=== PATIENT | female | born 1985 | race Caucasian/White ===

== ENCOUNTER 2017-03-30 07:15 | Inpatient (IN) | payer BC, OTHER ==
[2017-03-30] MEDS: LACTATED RINGERS SOLUTION 1,000 ML IV SCH ×3 (08:00→16:04)
[2017-03-30] MEDS ORDERED: AMPICILLIN - 2 GM in SODIUM CHLORIDE 100 ML IVPB ONE (08:03)
--- NOTE | 2017-03-30 08:03 | HP ---
Past Medical History - Primary Care Physician PCP:: Celeste Meek - Admission Chief Complaint: 31yo @ 39.1 wks c/o LOF this 6am, clear fluid, contructions, +FM, no VB History of Present Illness: 1. GBS + for antibiotics - Ampicillin 2. GI virus early in 3. SGA - 10% as of 03/29/17 - all reassuring testing 4. Flu shot 10/26/16 5. Tdap 02/10/17 History Source: Patient Limitations to Obtaining History: No Limitations - Past Medical History ...: 1 ...Para: 0 ...EDC by Sono: 04/03/17 - Past Surgical History Hx Myomectomy: No Hx Transabdominal Cerclage: No Additional Surgical History: 2012 Lasic eye surgery - Smoking History Smoking history: Never smoked Have you smoked in the past 12 months: No - Alcohol/Substance Use Hx Alcohol Use: No History of Substance Use: reports: None - Social History Occupation: customs and immigration officer History of Recent Travel: No Home Medications - Allergies Allergies/Adverse Reactions: Allergies Allergy/AdvReac Type Severity Reaction Status Date / Time No Known Allergies Allergy Verified 03/30/17 08:05 - Home Medications Home Medications: Ambulatory Orders Cholecalciferol (Vitamin D3) [Vitamin D3 -] 400 unit PO DAILY 03/25/17 Pnv No.95/Ferrous Fum/Folic AC [ Vitamin Tablet] 1 each PO DAILY Family Disease History - Family Disease History Family Disease History: Other: Mother (Breast CA) Review of Systems - Review of Systems Constitutional: reports: No Symptoms Eyes: reports: No Symptoms HENT: reports: No Symptoms Neck: reports: No Symptoms Cardiovascular: reports: No Symptoms Respiratory: reports: No Symptoms Gastrointestinal: reports: No Symptoms Genitourinary: reports: No Symptoms Breasts: reports: No Symptoms Reported Musculoskeletal: reports: No Symptoms Integumentary: reports: No Symptoms Neurological: reports: No Symptoms Endocrine: reports: No Symptoms Hematology/Lymphatic: reports: No Symptoms Psychiatric: reports: No Symptoms Physical Exam - Maternity Constitutional: Yes: Well Nourished HENT: Yes: WNL, Atraumatic, Normocephalic Neck: Yes: WNL, Supple Cardiovascular: Yes: WNL Lungs: Clear to auscultation Breast(s): Yes: WNL - Abdominal Exam/OB Fundal Height: 36 (EFW 6lb) Number of Fetuses: Single Presentation: Vertex Contractions: Yes Regularity: Regular Intensity: Mild Monitor Mode: External Heart Rate (range): 125 Heart Rate Location: [facility] Category: I Accelerations: Uniform Decelerations: None - Vaginal Exam/OB Vaginal Bleediing: No Speculum Exam: No (Grossly ruptured, clear) Dilatation (cm): 3 Effacement (%): 90 Amniotic Membrane Status: Ruptured Nitrazine Test: Positive Amniotic Fluid: Yes: Clear Presentation: Vertex/Position Station: -3 - Physical Exam Musculoskeletal: Yes: WNL Extremities: Yes: WNL Edema: No Integumentary: Yes: WNL ...Motor Strength: WNL Psychiatric: Yes: WNL, Alert, Oriented Assessment/Plan 31yo P0 @ 39.1 wks with ROM in early labor Admit to L&D IVF, NPO Routine Admission labs MF status reassuring Ampicillin for GBS prophylaxis Oxytocin if constructions become irregular and less than Q 3 min Pain management as needed, as per patient request
[2017-03-30] MEDS ORDERED: OXYTOCIN 30 UNITS in 0.9% NS 30 UNIT/500 ML INFUS.BAG IVPB SCH (08:15)
[2017-03-30 08:41] VITALS: BMI 29.4
[2017-03-30] MEDS ORDERED: LACTATED RINGERS SOLUTION 1000 ML INFUS.BAG IV SCH (08:45)
[2017-03-30 08:49] LABS: BASO % 0.4 % (0-2.0); EOS % 0.4 % (0-4.5); HEMATOCRIT 35.2 % (32.4-45.2); HEMOGLOBIN 11.7 GM/dL (10.7-15.3); LYMPH % 24.6 % (8-40); MCH 31.3 pg (25.7-33.7); MCHC 33.1 g/dl (32.0-36.0); MEAN CELL VOLUME 94.6 fl (80-96); MEAN PLT VOLUME 10.1 fl (7.5-11.1); MONO % 9.9 % (3.8-10.2); NEUT % 64.7 % (42.8-82.8); PLATELET COUNT 148 K/MM3 (134-434); RBC 3.72 M/mm3 (3.60-5.2); WHITE BLOOD COUNT 9.8 K/mm3 (4.0-10.0)
[2017-03-30 09:09] LABS: ANION GAP 10 (8-16); BLOOD UREA NITROGEN 8 mg/dL (7-18); CALCIUM 8.3 mg/dL (8.5-10.1); CHLORIDE 107 mmol/L (98-107); CO2 21 mmol/L (21-32); CREATININE 0.6 mg/dL (0.55-1.02); GLUCOSE,RANDOM 73 mg/dL (74-106); SODIUM 138 mmol/L (136-145)
[2017-03-30 09:24] LABS: INR 0.93 (0.82-1.09); PROTHROMBIN TIME (PATIENT) 10.5 SEC (9.98-11.88)
[2017-03-30 09:27] LABS: ACTIVATED PTT 22.5 SECONDS (26.9-34.4)
[2017-03-30] MEDS ORDERED: FENTANYL/BUPIVACAINE/NS/PF - PCEA - 50 ML DISP.SYRIN EP ONE ×3 (10:26→19:46)
[2017-03-30] MEDS ORDERED: NALOXONE HCL 0.4 MG/ML VIAL IVPUSH PRN (10:32)
[2017-03-30] MEDS: FENTANYL/BUPIVACAINE/NS/PF - PCEA - 50 ML DISP.SYRIN EP SCH ×2 (10:50→15:39)
[2017-03-30] MEDS: AMPICILLIN - 1 GM in SODIUM CHLORIDE 100 ML IVPB SCH ×3 (12:00→19:56)
--- NOTE | 2017-03-30 14:24 | PN ---
Progress Note, Labor Vaginal Exam #1 Labor Exam Date: 03/30/17 Labor Exam Time: 14:10 Heart Rate (range): 120's no decels, + accels, + scalp stimulation Dilatation: 4-5cm Effacement (%): 90 Amniotic Membrane Status: Ruptured Presentation: Vertex/Position Station: -2 (MF status reasuring EFW 6lb GBS prophylaxis to continue Start Pitocin @ 1mU/hr)
--- NOTE | 2017-03-30 16:42 | PN ---
Progress Note, Labor Vaginal Exam #2 Labor Exam Date: 03/30/17 Labor Exam Time: 16:30 Heart Rate (range): 130,s, + accels, no decels Dilatation: 5-6cm Effacement (%): 100 Amniotic Membrane Status: Ruptured Presentation: Vertex/Position Station: -2 Remarks: MF status reassuring now on 2mU/hr of Pitocin continue monitoring progress of labor
--- NOTE | 2017-03-30 18:45 | PN ---
Progress Note, Labor Vaginal Exam #3 Labor Exam Date: 03/30/17 Labor Exam Time: 18:30 Heart Rate (range): 130's + accels, occasional varriable decel Dilatation: 8-9cm Effacement (%): 100% Amniotic Membrane Status: Ruptured (clear) Presentation: Vertex/Position (NATHEN) Station: -1 Remarks: MF status reasuring Category 2 FHR, but overall reassuring features excellent labor progress on Pitocin of 3mU/hr continue current care
[2017-03-30] MEDS ORDERED: TUBERCULIN PPD 5 TU/0.1ML SYRINGE (IN PATIENT USE ONLY) ID ONE (19:15)
[2017-03-30] MEDS ORDERED: AMPICILLIN SODIUM 1 GM VIAL ONE (19:51)
--- NOTE | 2017-03-30 20:58 | PN ---
Progress Note, Labor Vaginal Exam #4 Labor Exam Date: 03/30/17 Labor Exam Time: 20:30 Heart Rate (range): 130 + accels, no decels Dilatation: Rim Effacement (%): 100 Amniotic Membrane Status: Ruptured Presentation: Vertex/Position Station: 0 Remarks: 31yo P0 @ 39wks in active labor MF status reassuring FHR Category 1 Adequate labor progress cont. monitoring
[2017-03-30] MEDS ORDERED: OXYTOCIN 20 UNITS in 0.9% NS 20 UNIT/1,000 ML INFUS.BAG IV ONE ×2 (21:13→23:37)
[2017-03-30] MEDS ORDERED: LIDOCAINE HCL 1% PRESERVATIVE FREE - 30ML VIAL ONE (21:13)
[2017-03-30] MEDS ORDERED: BENZOCAINE 20% 57 GM BOTTLE TP PRN (22:39)
[2017-03-30] MEDS ORDERED: BENZOCAINE 28 GM HEMORRHOIDAL OINTMENT TP PRN (22:39)
[2017-03-30] MEDS ORDERED: BISACODYL 10 MG SUPP.RECT RC PRN (22:39)
[2017-03-30] MEDS ORDERED: WITCH HAZEL 50% (TUCKS) 40 PAD/JAR PAD TP PRN (22:39)
[2017-03-30] MEDS ORDERED: METHYLERGONOVINE MALEATE 0.2 MG/1 ML AMP IM PRN (22:39)
--- NOTE | 2017-03-30 22:41 | PN ---
Delivery - Delivery Vaginal Delivery: No Problems Type of Anesthesia: Epidural Episiotomy/Laceration: Midline, 2nd degree Delivery, Single - Stages of Labor Date 1st Stage Initiatied: 03/30/17 Time 1st Stage Initiated: 07:30 Date 2nd Stage Initiated: 03/30/17 Time 2nd Stage Initiated: 21:35 Date of Delivery: 03/30/17 Time of Delivery: 22:15 Date Placenta Delivered: 03/30/17 Time Placenta Delivered: 22:17 Placenta: Yes: Spontaneous - Condition of Trench Digger/C Programmer Present: Yes Infant Gender: Female Position: OA - 1 Minute Total Score: 9 5 Minutes Total Score: 9 - [place] Feeding Plan Initial Plan: Exclusive throughout hospitalization Benefits of Exclusively reinforced: Yes Remarks - Remarks Remarks: Uncomplicated vaginal delivery, female 6.2lb
[2017-03-30] MEDS ORDERED: D5W-LR W/ 20 UNITS OXYTOCIN 20 UNIT/1,000 ML INFUS.BAG IV SCH (22:45)
[2017-03-30] MEDS ORDERED: OXYTOCIN 20 UNITS in 0.9% NS 20 UNIT/1,000 ML INFUS.BAG IV SCH (23:55)
[2017-03-31] MEDS: IBUPROFEN 600 MG TABLET (FP) PO PRN ×3 (04:22→21:08)
[2017-03-31 08:42] LABS: BASO % 0.2 % (0-2.0); EOS % 0.2 % (0-4.5); HEMATOCRIT 33.5 % (32.4-45.2); LYMPH % 16.2 % (8-40); MCH 31.1 pg (25.7-33.7); MCHC 32.9 g/dl (32.0-36.0); MEAN CELL VOLUME 94.7 fl (80-96); MEAN PLT VOLUME 10.3 fl (7.5-11.1); MONO % 7.7 % (3.8-10.2); NEUT % 75.7 % (42.8-82.8); PLATELET COUNT 143 K/MM3 (134-434); RBC 3.53 M/mm3 (3.60-5.2); WHITE BLOOD COUNT 16.6 K/mm3 (4.0-10.0)
[2017-03-31] MEDS: FERROUS SO4 325 MG TABLET (FP) PO SCH ×2 (09:15→21:06)
[2017-03-31] MEDS: PRENATAL VITAMINS W/ FOLIC ACID TABLET (FP) PO SCH (09:15)
[2017-03-31] MEDS: ACETAMINOPHEN 325 MG TABLET (FP) PO PRN ×2 (09:17→21:07)
--- NOTE | 2017-03-31 16:01 | PN ---
Post Progress Note - Subjective Subjective: No complaints Post Day: 1 Type of Delivery: Vital Signs: Vital Signs Temperature 98.1 F 03/31/17 14:00 Pulse Rate 75 03/31/17 14:00 Respiratory Rate 18 03/31/17 14:00 Blood Pressure 103/68 03/31/17 14:00 O2 Sat by Pulse Oximetry (%) 100 03/30/17 21:30 Breast Exam: Yes: Soft Uterus: Yes: Fundus Firm, Fundus below umbilicus, Non-tender Abdomen/GI: Yes: Abdomen soft, Tolerating PO Lochia: Yes: Rubra Lochia, amount: Small Extremities: Yes: Calves non-tender, Edema Perineum: Yes: Intact Activity: Ambulating - Labs Labs: CBC WBC 16.6 K/mm3 (4.0-10.0) H D 03/31/17 07:45 RBC 3.53 M/mm3 (3.60-5.2) L 03/31/17 07:45 Hgb 11.0 GM/dL (10.7-15.3) 03/31/17 07:45 Hct 33.5 % (32.4-45.2) 03/31/17 07:45 MCV 94.7 fl (80-96) 03/31/17 07:45 MCH 31.1 pg (25.7-33.7) 03/31/17 07:45 MCHC 32.9 g/dl (32.0-36.0) 03/31/17 07:45 RDW 14.0 % (11.6-15.6) 03/31/17 07:45 Plt Count 143 K/MM3 (134-434) 03/31/17 07:45 MPV 10.3 fl (7.5-11.1) 03/31/17 07:45 Neutrophils % 75.7 % (42.8-82.8) 03/31/17 07:45 Lymphocytes % 16.2 % (8-40) D 03/31/17 07:45 Monocytes % 7.7 % (3.8-10.2) 03/31/17 07:45 Eosinophils % 0.2 % (0-4.5) 03/31/17 07:45 Basophils % 0.2 % (0-2.0) 02/21/18 07:45 Assessment/Plan 31yo P1 s/p , doing well, stable, afebrile care reviewed Discharge instructions reviewed Plan to d/c home tomorrow, if stable.
--- NOTE | 2017-03-31 16:04 | DS ---
Physical Exam-BENCH EXAMINER Vital Signs: Vital Signs Temperature 98.1 F 03/31/17 14:00 Pulse Rate 75 03/31/17 14:00 Respiratory Rate 18 03/31/17 14:00 Blood Pressure 103/68 03/31/17 14:00 O2 Sat by Pulse Oximetry (%) 100 03/30/17 21:30 Constitutional: Yes: Well Nourished, No Distress, Calm Eyes: Yes: WNL, Conjunctiva Clear HENT: Yes: WNL, Atraumatic, Normocephalic Neck: Yes: WNL, Supple, Trachea Midline Cardiovascular: Yes: WNL, Regular Rate and Rhythm Respiratory: Yes: WNL, Regular, CTA Bilaterally Gastrointestinal: Yes: WNL, Normal Bowel Sounds, Soft ...Rectal Exam: Yes: Deferred Renal/: Yes: WNL ....Post : Yes: Uterus firm, Uterus non-tender, Slight lochia rubra Breast(s): Yes: WNL Musculoskeletal: Yes: WNL Extremities: Yes: WNL Edema: Yes Edema: LLE: Trace, RLE: Trace Integumentary: Yes: WNL Neurological: Yes: WNL, Alert, Oriented ...Motor Strength: WNL Psychiatric: Yes: WNL, Alert, Oriented Labs: CBC, BMP 03/31/17 07:45 03/30/17 08:15 Delivery - Delivery Vaginal Delivery: No Problems Type of Anesthesia: Epidural Episiotomy/Laceration: Midline, 2nd degree Delivery, Single - Stages of Labor Date 1st Stage Initiatied: 03/30/17 Time 1st Stage Initiated: 07:30 Date 2nd Stage Initiated: 03/30/17 Time 2nd Stage Initiated: 21:35 Date of Delivery: 03/30/17 Time of Delivery: 22:15 Time Placenta Delivered: 22:17 Placenta: Yes: Spontaneous - Condition of Infant Human Resources Consultant/Cotton Presser Present: Yes Gender: Female Weight: 2.778 kg Position: OA Total Hours ROM (Hrs/Mins): 16H 17M - 1 Minute Total Score: 9 5 Minutes Total Score: 9 - Feeding Plan Initial Plan: Exclusive throughout hospitalization Benefits of Exclusively reinforced: Yes Discharge Summary Reason For Visit: SROM-EARLY LABOR Labor at term Procedures: Principal: Hospital Course: Normal recovery Condition: Good - Instructions Diet, Activity, Other Instructions: Physical activity Resume your normal everyday activity as tolerated no heavy lifting or exercise until seen by your surgeon. You may walk unlimited sydnee of and climb stairs. You may resume driving the car when you feel safe and comfortable behind the wheel. No sexual activity as instructed. Wound care If you have a bandage, leave it on, and keep dry for 48-72 hours. After that time discard the outer bandage. If they are tapes on the skin under the out of bandage leave them in place. They will peel off in the next 7 to 10 days. Do Not Peel them off. You may shower the day after surgery. If there are tapes present on the skin, you may shower over them. Diet There are no dietary restrictions. Eat healthy, high-fiber foods. Drink 6 to 8 glasses of liquid each day. This will assist in keeping your bowels are regular. Pain management You may take Tylenol or acetaminophen or Ibuprofen (for example, Motrin, Advil etc.) from my pain prescription medication is ordered should be taken as prescribed for moderate to severe pain. Call MD for any of the following: Severe pain not relieved by medication Fever of 101 or higher Excessive bleeding or drainage on dressing Inability to urinate Referrals: Celeste Meek MD [Staff Physician] - Disposition: HOME - Home Medications Comprehensive Discharge Medication List: Ambulatory Orders Cholecalciferol (Vitamin D3) [Vitamin D3 -] 400 unit PO DAILY 03/25/17 Pnv No.95/Ferrous Fum/Folic AC [ Vitamin Tablet] 1 each PO DAILY
[2017-03-31] MEDS ORDERED: SENNOSIDES/DOCUSATE COMBO (SENNA PLUS) TABLET (UD) PO PRN (22:00)
--- NOTE | 2017-04-01 08:37 | PN ---
Progress Note (short form) - Note Progress Note: pod 2 doing well, no c/o CBC, BMP 03/31/17 07:45 03/30/17 08:15 Last Vital Signs Temp Pulse Resp BP Pulse Ox 98.6 F 75 18 121/76 100 03/31/17 22:00 03/31/17 22:00 03/31/17 22:00 03/31/17 22:00 03/30/17 21:30 abdomen soft, no distension, no cva uterus firm, non tender lochia mild plan ambualte , d/c home , rtc 4 weeks
[2017-04-01] MEDS: PRENATAL VITAMINS W/ FOLIC ACID TABLET (FP) PO SCH (09:31)
[2017-04-01] MEDS: FERROUS SO4 325 MG TABLET (FP) PO SCH (09:31)
[2017-04-01 12:03] VITALS: BP 115/85; PULSE 64; TEMP 98.3
== END 2017-04-01 12:45 | disposition home or self-care (01) | DRG 775 ==
LOC: JLDR 07:15 → J3W 03-31 00:37
PROVIDERS: ADMIT Obstetrics & Gynecology; ATTEND Obstetrics & Gynecology
PROC: 0KQM0ZZ Repair Perineum Muscle, Open Approach (ICD-10-PCS; principal; 2017-03-30)
PROC: 10E0XZZ Delivery of Products of Conception, External Approach (ICD-10-PCS; 2017-03-30)
DX: O99.824 Streptococcus B carrier state complicating childbirth (principal); O70.1 Second degree perineal laceration during delivery; Z3A.39 39 weeks gestation of pregnancy; Z37.0 Single live birth
CPT/HCPCS: 36415; 59409; 80048; 85025; 85610; 85730; 86593; 86850; 86900; 86901